=== PATIENT | male | born 1985 | race Caucasian/White ===

== ENCOUNTER → 2025-03-10 14:37 | Outpatient (CLI) | payer OTHER, SELFPAY ==
--- NOTE | 2025-03-10 14:39 | DI.RAD.S_ITS ---
PROCEDURE: XR KNEE LT 1TO2V INDICATIONS: bilateral knee pain TECHNIQUE: 2 views of the knee were acquired. COMPARISON: [facility], CR, XR KNEE RT 1TO2V, 03/10/2025, 14:37. FINDINGS: Bones: No fractures or dislocations. No suspicious bony lesions. Soft tissues: Mild joint effusion. No suspicious soft tissue calcifications. IMPRESSION: No visualized acute fracture or dislocation. However, if clinical concern and/or pain persist, short interval imaging followup in 7-10 days is recommended, as occult injury cannot be definitively excluded. Dictated by: Radha Ramos M.D. on 03/10/2025 at 21:32 Approved by: Radha Ramos M.D. on 03/10/2025 at 21:32
--- NOTE | 2025-03-10 14:39 | DI.RAD.S_ITS ---
PROCEDURE: XR KNEE RT 1TO2V INDICATIONS: bilateral knee pain TECHNIQUE: 2 views of the knee were acquired. COMPARISON: [facility], CR, XR KNEE LT 1TO2V, 03/10/2025, 14:37. FINDINGS: Bones: No fractures or dislocations. No suspicious bony lesions. Soft tissues: Mild joint effusion. No suspicious soft tissue calcifications. IMPRESSION: No visualized acute fracture or dislocation. However, if clinical concern and/or pain persist, short interval imaging followup in 7-10 days is recommended, as occult injury cannot be definitively excluded. Dictated by: Radha Ramos M.D. on 03/10/2025 at 21:33 Approved by: Radha Ramos M.D. on 03/10/2025 at 21:33
[2025-03-10 15:57] LABS: Alanine Aminotransferase 37 IU/L (<50); Albumin 4.8 g/dL (3.5-5.0); Albumin Globulin Ratio 1.8 (1.0-2.8); Alkaline Phosphatase 190 U/L (38-126); Aspartate Aminotransferase 31 IU/L (17-59); BUN Creatinine Ratio 16.7 (6-22); Bilirubin Total 1.2 mg/dL (0.2-1.3); Blood Urea Nitrogen 12 mg/dL (9-20); Calcium 9.7 mg/dL (8.4-10.2); Carbon Dioxide 22 mmol/L (22-32); Chloride 103 mmol/L (98-107); Cholesterol 122 mg/dL (140-199); Estimated Glomerular Filt Rate > 60 mL/min (>60); Globulin 2.7 g/dL (1.7-4.1); Glucose 105 mg/dL (70-99); HDL Cholesterol 45 mg/dL (40-60); HEMOLYSIS < 15 (0-50); LDL Cholesterol Calculated 62 mg/dL (<100); Potassium 4.3 mmol/L (3.4-5.1); Sodium 138 mmol/L (137-145); Total Protein 7.5 g/dL (6.3-8.2); Triglycerides 74 mg/dL (35-150)
[2025-03-10 16:28] LABS: Mean Corpuscular Hemoglobin 28.5 PG (26-34); Red Cell Distribution Width 12.9 % (11.6-14.8)
[2025-03-10 17:23] LABS: Add Manual Diff / Slide Review YES; Hematocrit 55.8 % (41-53); Hemoglobin 19.3 g/dL (13.5-17.5); Mean Corpuscular HGB Conc 34.6 % (30-36); Mean Corpuscular Volume 82.2 fL (80-100); Platelet Count 174 X10^3/uL (150-400); Red Blood Cell Count 6.78 X10^6/uL (4.5-5.9); White Blood Cell Count 5.5 X10^3/uL (4.5-11.0)
[2025-03-10 17:54] LABS: Neutrophils Absolute Manual 3080 /uL (3000-5900); Nucleated Red Blood Cells 1 #/Diff; RBC Morphology Normal Morphology; Total Cells Counted 100
== END ==
PROVIDERS: PCP Student in an Organized Health Care Education/Training Program; Referring Provider Student in an Organized Health Care Education/Training Program; Visit Provider Student in an Organized Health Care Education/Training Program
DX: M25.561 Pain in right knee (principal); M25.562 Pain in left knee; F41.9 Anxiety disorder, unspecified; M25.461 Effusion, right knee; M25.462 Effusion, left knee; Z13.220 Encounter for screening for lipoid disorders
CPT/HCPCS: 36415; 73560; 80053; 80061; 85007; 85025

== ENCOUNTER → 2025-03-25 13:57 | Outpatient (CLI) | payer OTHER, SELFPAY ==
[2025-03-25 14:28] LABS: Add Manual Diff / Slide Review NO; Basophils Absolute Auto 0 /uL (0-100); Basophils Percent Auto 0.5 % (0-2); Eosinophils Absolute Auto 0 /uL (0-450); Eosinophils Percent Auto 0.5 % (2-4); Hematocrit 48.5 % (41-53); Hemoglobin 17.1 g/dL (13.5-17.5); Lymphocytes Absolute Auto 2000 /uL (1100-4500); Lymphocytes Percent Auto 32.5 % (25-40); Mean Corpuscular HGB Conc 35.2 % (30-36); Mean Corpuscular Hemoglobin 28.7 PG (26-34); Mean Corpuscular Volume 81.5 fL (80-100); Monocytes Absolute Auto 700 /uL (0-900); Monocytes Percent Auto 11.9 % (3-14); Neutrophils Absolute Auto 3300 /uL (1500-7000); Neutrophils Percent Auto 54.6 % (50-75); Platelet Count 242 X10^3/uL (150-400); Red Blood Cell Count 5.95 X10^6/uL (4.5-5.9); Red Cell Distribution Width 12.3 % (11.6-14.8); White Blood Cell Count 6.1 X10^3/uL (4.5-11.0)
[2025-03-25 14:48] LABS: Alanine Aminotransferase 39 IU/L (<50); Albumin Globulin Ratio 1.7 (1.0-2.8); Alkaline Phosphatase 182 U/L (38-126); Aspartate Aminotransferase 32 IU/L (17-59); BUN Creatinine Ratio 17.9 (6-22); Bilirubin Total 1.4 mg/dL (0.2-1.3); Blood Urea Nitrogen 14 mg/dL (9-20); Calcium 9.9 mg/dL (8.4-10.2); Carbon Dioxide 25 mmol/L (22-32); Chloride 101 mmol/L (98-107); Estimated Glomerular Filt Rate > 60 mL/min (>60); Globulin 2.9 g/dL (1.7-4.1); Glucose 89 mg/dL (70-99); HEMOLYSIS 20 (0-50); Potassium 4.3 mmol/L (3.4-5.1); Sodium 138 mmol/L (137-145); Total Protein 7.9 g/dL (6.3-8.2)
== END ==
PROVIDERS: PCP Student in an Organized Health Care Education/Training Program; Referring Provider Student in an Organized Health Care Education/Training Program; Visit Provider Student in an Organized Health Care Education/Training Program
DX: R71.8 Other abnormality of red blood cells (principal); R74.8 Abnormal levels of other serum enzymes
CPT/HCPCS: 36415; 80053; 85025

== ENCOUNTER 2025-07-16 14:30 | Outpatient (RCR) | payer OTHER, SELFPAY ==
--- NOTE | 2025-04-30 16:29 | PT.OIE ---
Current Diagnoses Pain in unspecified knee (04/30/25) Past Medical History (Last Reviewed 04/19/25 @ 16:44 by Roberth Ackerman DO) Anxiety Chicken pox (~1990) Knee pain (~2003) Tinnitus Past Surgical History (Last Reviewed 04/19/25 @ 16:44 by Roberth Ackerman DO) Anesthesia Edwards teeth removed (~2014) Visit Care Team Role Provider Type Julissa Palomo MD Attending Provider Physician Family Provider Primary Care Provider Referring Provider Specialty: Family Practice Obstetrics Address: [address] [place] [address] Email: [email or web address] Physical Therapy Initial Evaluation PT-OP-A Visit Information Start: 04/30/25 14:41 Freq: Status: Active Protocol: Document 04/30/25 14:42 BL (Rec: 04/30/25 16:29 BL Laptop) Out-Patient Physical Therapy Visit Information Visit Information Visit Type Initial Evaluation Visit Start Time 14:40 Visit Stop Time 15:25 Visit Number (1) 11/20 (PN by 04/30/25) PT-OP-C Subjective Start: 04/30/25 14:41 Freq: Status: Active Protocol: Document 04/30/25 14:42 BL (Rec: 04/30/25 16:29 BL Laptop) OP-PT Subjective Patient Comments Patient Comments Pt presents to the clinic this date with concerns for bilateral knee pain. pt reports insidious onset when he was a teen, reports his symptoms have gradually worsened over the years with increased clicking and popping noted in his 20s and into his 30s. Pt states he has not been able to correlate any changes in temperature or times of the day when his symptoms are worse. Pt does report stairs or squatting type activities seem to cause an increase in his symptoms. States the pain is more of an annoyance at this time but he does try to avoid doing activities that bother him. Patient Reported Same Progress Patient Questionnaires Lower Extremity Functional Scale LEFS Score 56% function PT-OP-G Mobility & Gait Start: 04/30/25 14:41 Freq: Status: Active Protocol: Document 04/30/25 14:42 BL (Rec: 04/30/25 16:29 BL Laptop) OP Gait Assessment Comments Gait Comments Pt ambulates with B ER with R>L. Pt demo normal amount of hip rotation. PT-OP-H Neuro Start: 04/30/25 14:41 Freq: Status: Active Protocol: Document 04/30/25 14:42 BL (Rec: 04/30/25 16:29 BL Laptop) Sensation Evaluation Comments Summary Comments no changes in sensation noted this date. Coordination Evaluation Comments Coordination no coordination deficits noted this date. Comments PT-OP-J Posture/Palpation/Skin Start: 04/30/25 14:41 Freq: Status: Active Protocol: Document 04/30/25 14:42 BL (Rec: 04/30/25 16:29 BL Laptop) Posture Evaluation Comments Posture Comments Pt sits with posterior pelvic tilt and R sided lean, forward head and rounded shoulders, slumped position. Pt demos increased tibial torsion to R LE. Palpation Assessment Location R knee Palpation Details crepitus noted with loaded bilateral flexion through patella. Increased crepitus noted with patellar grind test. PT-OP-K Range of Motion Start: 04/30/25 14:41 Freq: Status: Active Protocol: Document 04/30/25 14:42 BL (Rec: 04/30/25 16:29 BL Laptop) Hip Goniometric Range of Motion Hip ROM Limitations Comments Rekha ROM WFL, Increased anterior tension noted into flexion on L side Knee Goniometric Range of Motion Knee Right Knee ROM WFL Yes Comments hypermobility noted Left Knee ROM WFL Yes Comments hypermobility noted PT-OP-L Special Tests Start: 04/30/25 14:41 Freq: Status: Active Protocol: Document 04/30/25 14:42 BL (Rec: 04/30/25 16:29 BL Laptop) Special Tests Knee Special Tests Jamaal Test Test Results negative Straight Leg Raise Test Results negative Patellar Grind Test Test Results negative Varus- 0 Degrees Test Results negative Valgus- 0 Degrees Test Results negative Posterior Draw Test Results negative Anterior Draw Test Results negative PT-OP-M Strength Start: 04/30/25 14:41 Freq: Status: Active Protocol: Document 04/30/25 14:42 BL (Rec: 04/30/25 16:29 BL Laptop) Hip Strength Hip Manual Muscle Testing Right Flexion (L2) 4+ Good+ Extension (S1) 4+ Good+ Abduction 5 Normal Adduction 4+ Good+ Left Flexion (L2) 4+ Good+ Extension (S1) 4+ Good+ Abduction 5 Normal Adduction 4+ Good+ Knee Strength Knee Manual Muscle Testing Right Flexion (S2) 4 Good Extension (L3) 5 Normal Left Flexion (S2) 4 Good Extension (L3) 5 Normal PT-OP-Q Treatments Start: 04/30/25 14:41 Freq: Status: Active Protocol: Document 04/30/25 14:42 BL (Rec: 04/30/25 16:29 BL Laptop) Therapeutic Exercises Supine Exercises strength Supine Exercise Name bridges, with heel digs Resistance lvl 3 band Comments focus on hamstring activation Prone Exercises strength Prone Exercise Name hamsting curls with knee lift Resistance lvl 3 band Comments focus on hip abduction and hamstring activation PT-OP-T Assessment and Plan Start: 04/30/25 14:41 Freq: Status: Active Protocol: Document 04/30/25 14:42 BL (Rec: 04/30/25 16:29 BL Laptop) Physical Therapy Assessment Rehab Potential Rehabilitation Good Potential Evaluation Complexity Number of Personal 1-2 Factors/ Comorbidities Number of Body 3 Systems Impaired Clinical Stable Presentation at Evaluation Impairments Impairments Functional Activities,Functional Mobility,Integument, Pain,Posture,ROM,Strength,Transfers Goals Three Usp Goal (LTG) Pt will demo improved knee flexion strength in sitting to 4+/5 by DC for improved knee stability with ADLS. Two Shipping Inspector Goal (LTG) Pt will report being able to squat down without increase in symptoms 15x by DC for improved functional mobility. One Short Term Goal (STG pt will be ind with HEP within 2 visits in order to ) progress toward intermediate accountant therapy goals outside of therapy visits. Usp Goal (LTG) Pt will demo improved LEFS score to 70% function or better by DC for improved completion of ADLs. Assessment Summary Assessment Pt presents to the clinic this date with concerns for rekha knee pain that has been present for many years. The pain has limited his ability to complete ADLs and has altered his decision making with ADLS. Pt demos severe crepitus with closed chain bending activities. Pt demos full AROM at both knees and hip and good hip strength, pt demos increased mobility in all joints with slight increase in joint laxity. Pt demos hypermobility at bilateral patella's. Pt also demos decreased knee flexion strength. Pt will benefit from skilled Physical Therapy intervention for strength and stability control to posterior chain to improve functional mobility and decrease symptoms for improved quality of life. Physical Therapy Plan Frequency and Duration Frequency of 1x/Week Treatment Duration of 12 treatment (weeks) Plan of Care Start 04/30/25 Date Plan of Care End 07/23/25 Date Therapeutic Interventions Therapeutic Coordination Training,Gait Training,Home Exercise Interventions Program,Joint Mobilizations,Manual Therapy, Neuromuscular Re-education,Patient/Caregiver Education, Self-Care/Home Management,Sensory Integration,Soft Tissue Mobilization,Taping,Therapeutic Activities, Therapeutic Exercises Modalities Cold Pack/Ice Massage,Electric Stimulation,Hot Packs, Infrared Therapy,Iontophoresis,Traction- Mechanical, Ultrasound
--- NOTE | 2025-04-30 16:30 | PT.OPPOC ---
Physical, Occupational & Speech Therapy At [facility] Current Diagnoses Pain in unspecified knee (04/30/25) Visit Care Team Role Provider Type Julissa Palomo MD Attending Provider Physician Family Provider Primary Care Provider Referring Provider Specialty: Family Practice Obstetrics Address: [address] [place] [address], [id number] Email: [email or web address] Plan Of Care PT-OP-T Assessment and Plan Start: 04/30/25 14:41 Freq: Status: Active Protocol: Document 04/30/25 14:42 BL (Rec: 04/30/25 16:29 BL Laptop) Physical Therapy Assessment Rehab Potential Rehabilitation Good Potential Evaluation Complexity Number of Personal 1-2 Factors/ Comorbidities Number of Body 3 Systems Impaired Clinical Stable Presentation at Evaluation Impairments Impairments Functional Activities,Functional Mobility,Integument, Pain,Posture,ROM,Strength,Transfers Goals Three Penitentiary Goal (LTG) Pt will demo improved knee flexion strength in sitting to 4+/5 by DC for improved knee stability with ADLS. Two Penitentiary Goal (LTG) Pt will report being able to squat down without increase in symptoms 15x by DC for improved functional mobility. One Short Term Goal (STG pt will be ind with HEP within 2 visits in order to ) progress toward group home therapy goals outside of therapy visits. Medical Stenographer Goal (LTG) Pt will demo improved LEFS score to 70% function or better by DC for improved completion of ADLs. Assessment Summary Assessment Pt presents to the clinic this date with concerns for rekha knee pain that has been present for many years. The pain has limited his ability to complete ADLs and has altered his decision making with ADLS. Pt demos severe crepitus with closed chain bending activities. Pt demos full AROM at both knees and hip and good hip strength, pt demos increased mobility in all joints with slight increase in joint laxity. Pt demos hypermobility at bilateral patella's. Pt also demos decreased knee flexion strength. Pt will benefit from skilled Physical Therapy intervention for strength and stability control to posterior chain to improve functional mobility and decrease symptoms for improved quality of life. Physical Therapy Plan Frequency and Duration Frequency of 1x/Week Treatment Duration of 12 treatment (weeks) Plan of Care Start 04/30/25 Plan of Care End 07/23/25 Date Therapeutic Interventions Therapeutic Coordination Training,Gait Training,Home Exercise Interventions Program,Joint Mobilizations,Manual Therapy, Neuromuscular Re-education,Patient/Caregiver Education, Self-Care/Home Management,Sensory Integration,Soft Tissue Mobilization,Taping,Therapeutic Activities, Therapeutic Exercises Modalities Cold Pack/Ice Massage,Electric Stimulation,Hot Packs, Infrared Therapy,Iontophoresis,Traction- Mechanical, Ultrasound Plan of Care Dates Plan of Care Start Date 04/30/25 Plan of Care End Date 07/23/25 Electronically Signed by: Ramos Landaverde, PT 04/30/25 1891 If you are in agreement with this Plan of Care, please return a signed and dated copy. I have reviewed this Plan of Care and certify that the skilled therapy services above are required to meet the patient?s needs. Physician Signature Date Printed Name and Credentials Clinical Instructor Signature Printed Name and Credentials
--- NOTE | 2025-05-21 15:15 | PT.OTN ---
Current Diagnoses Pain in unspecified knee (05/21/25) Physical Therapy Treatment Note PT-OP-A Visit Information Start: 04/30/25 14:41 Freq: Status: Active Protocol: Document 05/21/25 14:31 BL (Rec: 05/21/25 15:15 BL Laptop) Out-Patient Physical Therapy Visit Information Visit Information Visit Type Treatment Note Visit Start Time 14:30 Visit Stop Time 15:25 Visit Number (2) 2/10 (PN by 04/30/25) PT-OP-C Subjective Start: 04/30/25 14:41 Freq: Status: Active Protocol: Document 05/21/25 14:31 BL (Rec: 05/21/25 15:15 BL Laptop) OP-PT Subjective Patient Comments Patient Comments Pt presents to the clinic this date and reports he is doing well, can feel his strength is improving however symptoms have remained about the same. PT-OP-G Mobility & Gait Start: 04/30/25 14:41 Freq: Status: Active Protocol: Document 04/30/25 14:42 BL (Rec: 04/30/25 16:29 BL Laptop) OP Gait Assessment Comments Gait Comments Pt ambulates with B ER with R>L. Pt demo normal amount of hip rotation. PT-OP-H Neuro Start: 04/30/25 14:41 Freq: Status: Active Protocol: Document 04/30/25 14:42 BL (Rec: 04/30/25 16:29 BL Laptop) Sensation Evaluation Comments Summary Comments no changes in sensation noted this date. Coordination Evaluation Comments Coordination no coordination deficits noted this date. Comments PT-OP-J Posture/Palpation/Skin Start: 04/30/25 14:41 Freq: Status: Active Protocol: Document 04/30/25 14:42 BL (Rec: 04/30/25 16:29 BL Laptop) Posture Evaluation Comments Posture Comments Pt sits with posterior pelvic tilt and R sided lean, forward head and rounded shoulders, slumped position. Pt demos increased tibial torsion to R LE. Palpation Assessment Location R knee Palpation Details crepitus noted with loaded bilateral flexion through patella. Increased crepitus noted with patellar grind test. PT-OP-K Range of Motion Start: 04/30/25 14:41 Freq: Status: Active Protocol: Document 04/30/25 14:42 BL (Rec: 04/30/25 16:29 BL Laptop) Hip Goniometric Range of Motion Hip ROM Limitations Comments Domingo ROM WFL, Increased anterior tension noted into flexion on L side Knee Goniometric Range of Motion Knee Right Knee ROM WFL Yes Comments hypermobility noted Left Knee ROM WFL Yes Comments hypermobility noted PT-OP-L Special Tests Start: 04/30/25 14:41 Freq: Status: Active Protocol: Document 04/30/25 14:42 BL (Rec: 04/30/25 16:29 BL Laptop) Special Tests Knee Special Tests Jamaal Test Test Results negative Straight Leg Raise Test Results negative Patellar Grind Test Test Results negative Varus- 0 Degrees Test Results negative Valgus- 0 Degrees Test Results negative Posterior Draw Test Results negative Anterior Draw Test Results negative PT-OP-M Strength Start: 04/30/25 14:41 Freq: Status: Active Protocol: Document 04/30/25 14:42 BL (Rec: 04/30/25 16:29 BL Laptop) Hip Strength Hip Manual Muscle Testing Right Flexion (L2) 4+ Good+ Extension (S1) 4+ Good+ Abduction 5 Normal Adduction 4+ Good+ Left Flexion (L2) 4+ Good+ Extension (S1) 4+ Good+ Abduction 5 Normal Adduction 4+ Good+ Knee Strength Knee Manual Muscle Testing Right Flexion (S2) 4 Good Extension (L3) 5 Normal Left Flexion (S2) 4 Good Extension (L3) 5 Normal PT-OP-Q Treatments Start: 04/30/25 14:41 Freq: Status: Active Protocol: Document 05/21/25 14:31 BL (Rec: 05/21/25 15:15 BL Laptop) Therapeutic Exercises Supine Exercises strength Supine Exercise Name bridges, with heel digs Resistance lvl 5 band Comments focus on hamstring activation Prone Exercises strength Prone Exercise Name hamsting curls with knee lift Resistance lvl 3 band Comments focus on hip abduction and hamstring activation Standing Exercises strength Standing Exercise lateral walking, lateral step ups Name Comments focus on knee alignment, pt demos difficulty maintaining neutral alignement PT-OP-T Assessment and Plan Start: 04/30/25 14:41 Freq: Status: Active Protocol: Document 05/21/25 14:31 BL (Rec: 05/21/25 15:15 BL Laptop) Physical Therapy Assessment Goals Three Senior Living Goal (LTG) Pt will demo improved knee flexion strength in sitting to 4+/5 by DC for improved knee stability with ADLS. Two Senior Living Goal (LTG) Pt will report being able to squat down without increase in symptoms 15x by DC for improved functional mobility. One Short Term Goal (STG pt will be ind with HEP within 2 visits in order to ) progress toward detention therapy goals outside of therapy visits. Catering And Events Manager Goal (LTG) Pt will demo improved LEFS score to 70% function or better by DC for improved completion of ADLs. Assessment Summary Assessment Pt tolerates session well, advanced HEP for LE strength and knee stability. Pt demos difficulty maintaining neutral knee alignment, demos compensation at the hips. Continue to advance hip and knee strengthening next session. Physical Therapy Plan Frequency and Duration Frequency of 1x/Week Treatment Duration of 12 treatment (weeks) Plan of Care Start 04/30/25 Plan of Care End 07/23/25 Date
--- NOTE | 2025-06-04 15:20 | PT.OPPN ---
Current Diagnoses Pain in unspecified knee (06/04/25) Physical Therapy Progress Note PT-OP-A Visit Information Start: 04/30/25 14:41 Freq: Status: Active Protocol: Document 06/04/25 14:37 BL (Rec: 06/04/25 15:18 BL Laptop) Out-Patient Physical Therapy Visit Information Visit Information Visit Type Progress Note Visit Start Time 14:30 Visit Stop Time 15:10 Visit Number (3) 11/20 (PN by 04/30/25) PT-OP-C Subjective Start: 04/30/25 14:41 Freq: Status: Active Protocol: Document 06/04/25 14:37 BL (Rec: 06/04/25 15:18 BL Laptop) OP-PT Subjective Patient Comments Patient Comments Pt presents to the clinic this date and reports he is doing well, states symptoms feel about the same however continues to notice improved quad control. States he is still fatigued following HEP. PT-OP-G Mobility & Gait Start: 04/30/25 14:41 Freq: Status: Active Protocol: Document 04/30/25 14:42 BL (Rec: 04/30/25 16:29 BL Laptop) OP Gait Assessment Comments Gait Comments Pt ambulates with B ER with R>L. Pt demo normal amount of hip rotation. PT-OP-H Neuro Start: 04/30/25 14:41 Freq: Status: Active Protocol: Document 04/30/25 14:42 BL (Rec: 04/30/25 16:29 BL Laptop) Sensation Evaluation Comments Summary Comments no changes in sensation noted this date. Coordination Evaluation Comments Coordination no coordination deficits noted this date. Comments PT-OP-J Posture/Palpation/Skin Start: 04/30/25 14:41 Freq: Status: Active Protocol: Document 04/30/25 14:42 BL (Rec: 04/30/25 16:29 BL Laptop) Posture Evaluation Comments Posture Comments Pt sits with posterior pelvic tilt and R sided lean, forward head and rounded shoulders, slumped position. Pt demos increased tibial torsion to R LE. Palpation Assessment Location R knee Palpation Details crepitus noted with loaded bilateral flexion through patella. Increased crepitus noted with patellar grind test. PT-OP-K Range of Motion Start: 04/30/25 14:41 Freq: Status: Active Protocol: Document 04/30/25 14:42 BL (Rec: 04/30/25 16:29 BL Laptop) Hip Goniometric Range of Motion Hip ROM Limitations Comments Domingo ROM WFL, Increased anterior tension noted into flexion on L side Knee Goniometric Range of Motion Knee Measured in Degrees Right Knee ROM WFL Yes Comments hypermobility noted Left Knee ROM WFL Yes Comments hypermobility noted PT-OP-L Special Tests Start: 04/30/25 14:41 Freq: Status: Active Protocol: Document 04/30/25 14:42 BL (Rec: 04/30/25 16:29 BL Laptop) Special Tests Knee Special Tests Jamaal Test Test Results negative Straight Leg Raise Test Results negative Patellar Grind Test Test Results negative Varus- 0 Degrees Test Results negative Valgus- 0 Degrees Test Results negative Posterior Draw Test Results negative Anterior Draw Test Results negative PT-OP-M Strength Start: 04/30/25 14:41 Freq: Status: Active Protocol: Document 04/30/25 14:42 BL (Rec: 04/30/25 16:29 BL Laptop) Hip Strength Hip Manual Muscle Testing Right Flexion (L2) 4+ Good+ Extension (S1) 4+ Good+ Abduction 5 Normal Adduction 4+ Good+ Left Flexion (L2) 4+ Good+ Extension (S1) 4+ Good+ Abduction 5 Normal Adduction 4+ Good+ Knee Strength Knee Manual Muscle Testing Right Flexion (S2) 4 Good Extension (L3) 5 Normal Left Flexion (S2) 4 Good Extension (L3) 5 Normal PT-OP-T Assessment and Plan Start: 04/30/25 14:41 Freq: Status: Active Protocol: Document 06/04/25 14:37 BL (Rec: 06/04/25 15:18 BL Laptop) Physical Therapy Assessment Goals Three Custodial Goal (LTG) Pt will demo improved knee flexion strength in sitting to 4+/5 by DC for improved knee stability with ADLS. ( progressing) 06/04/25: pt demos improved hamstring strength however continues to have mild distal knee pain. Two Budget Technician Goal (LTG) Pt will report being able to squat down without increase in symptoms 15x by DC for improved functional mobility. (progressing) 06/04/25: pt continues to demo distal patella pain after 8-10 squats this date. One Short Term Goal (STG pt will be ind with HEP within 2 visits in order to ) progress toward keno terminal operator therapy goals outside of therapy visits. (Goal Met) Custodial Goal (LTG) Pt will demo improved LEFS score to 70% function or better by DC for improved completion of ADLs. ( progressing): per pt report improving Assessment Summary Assessment Pt tolerates session well, advanced HEP for LE hip knee and ankle strength and stability. Pt continues to demos difficulty maintaining neutral knee alignment, demos compensation at the hips. Continue to advance hip and knee strengthening next session. Pt will continue to benefit from strength and endurance training to improved pain free ROM. Physical Therapy Plan Frequency and Duration Frequency of 1x/Week Treatment Duration of 12 treatment (weeks) Plan of Care Start 04/30/25 Date Plan of Care End 07/23/25 Date
--- NOTE | 2025-06-18 17:33 | PT.OTN ---
Current Diagnoses Pain in unspecified knee (06/18/25) Physical Therapy Treatment Note PT OP: Lower Back/Lower Extremity Start: 06/18/25 07:30 Freq: Status: Active Protocol: Document 06/18/25 16:47 BL (Rec: 06/18/25 17:33 BL Laptop) Out-Patient Physical Therapy Visit Information Visit Information Visit Type Treatment Note Visit Start Time 14:30 Visit Stop Time 15:10 Visit Number (4) 12/21 Progress Note Due 04/30/25 OP-PT Subjective Patient Comments Patient Comments Pt presents to the clinic this date and reports he is doing well, states he has started to notice slight improvement in his symptoms, reports the lateral walking has started to bother his low back. Therapeutic Exercises Supine Exercises strength Supine Exercise Name Banded bridges with SL extension Resistance lvl 4 band Comments focus on hamstring activation Sidelying Exercises strength Sidelying Exercise hip abduction with IR focus Name Resistance lvl 1 band at ankles Comments 10x Standing Exercises BOSU squats Standing Exercise shuttle squats, cone deadlift taps Name strength Standing Exercise lateral walking, lateral step ups Name Resistance lvl 3 band Comments cues for core activation decrease low back symptoms Physical Therapy Assessment Goals Three Electrical And Electronic Assembler Goal (LTG) Pt will demo improved knee flexion strength in sitting to 4+/5 by DC for improved knee stability with ADLS. ( progressing) 06/04/25: pt demos improved hamstring strength however continues to have mild distal knee pain. Two [facility] Goal (LTG) Pt will report being able to squat down without increase in symptoms 15x by DC for improved functional mobility. (progressing) 06/04/25: pt continues to demo distal patella pain after 8-10 squats this date. 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 (Goal Met) [facility] Goal (LTG) Pt will demo improved LEFS score to 70% function or better by DC for improved completion of ADLs. ( progressing): per pt report improving Assessment Summary Assessment Pt tolerates session well, advanced HEP for LE hip knee and ankle strength and stability with increased education for core activation and cues to avoid compensation due to weakness in hips. Pt demos improved neutral knee alignment this date with continued compensation at the hips. Continue to advance hip and knee strengthening next session. Pt will continue to benefit from strength and endurance training to improved pain free ROM. Physical Therapy Plan Frequency and Duration Frequency of 1x/Week Treatment Duration of 12 treatment (weeks) Plan of Care Start 04/30/25 Date Plan of Care End 07/23/25 Date Next Visit Focus/Plan Next Note Type Treatment Note Next Visit Plan advance hip and knee stability with dynamic mobility.
--- NOTE | 2025-07-07 08:10 | PT.OPPN ---
Current Diagnoses Pain in unspecified knee (07/07/25) Physical Therapy Progress Note PT OP: Lower Back/Lower Extremity Start: 06/18/25 07:30 Freq: Status: Active Protocol: Document 07/07/25 07:27 BL (Rec: 07/07/25 08:10 BL Laptop) Out-Patient Physical Therapy Visit Information Visit Information Visit Type Progress Note Visit Start Time 07:30 Visit Stop Time 08:10 Visit Number (5) 11/20 Progress Note Due 08/06/25 OP-PT Subjective Patient Comments Patient Comments Pt presents to the clinic this date and reports he is doing well, states improved symptoms with all mobility, continues to have mild discomfort in R knee after activities. Therapeutic Exercises Supine Exercises strength Supine Exercise Name Banded bridges with SL extension Resistance lvl 4 band Comments focus on hamstring activation Sidelying Exercises strength Sidelying Exercise hip abduction with IR focus, sideplank clamshell Name Resistance lvl 1 band at ankles Comments 10x Standing Exercises BOSU squats Standing Exercise shuttle squats, cone deadlift taps Name strength Standing Exercise lateral walking, lateral step ups Name Resistance lvl 3 band Comments cues for core activation decrease low back symptoms Physical Therapy Assessment Goals Three Configuration Engineer Goal (LTG) Pt will demo improved knee flexion strength in sitting to 4+/5 by DC for improved knee stability with ADLS. ( progressing) 06/04/25: pt demos improved hamstring strength however continues to have mild distal knee pain. 07/07/25: Pt demos 4+/5 strength bilateral Two Configuration Engineer Goal (LTG) Pt will report being able to squat down without increase in symptoms 15x by DC for improved functional mobility. (progressing) 06/04/25: pt continues to demo distal patella pain after 8-10 squats this date. : Pain after 12 on R, L no pain. One Short Term Goal (STG pt will be ind with HEP within 2 visits in order to ) progress toward senior living therapy goals outside of therapy visits. (Goal Met) Configuration Engineer Goal (LTG) Pt will demo improved LEFS score to 70% function or better by DC for improved completion of ADLs. (Goal Met ) 07/07/25: 70 Function Assessment Summary Assessment Pt tolerates session well, pt able to tolerate advancement in HEP for LE strength and stability, pt continues to demo improved stability and decreased discomfort in rekha knees. Pt progressing toward all therapy goals and will continue to benefit from skilled PT intervention for strength and endurance training. Physical Therapy Plan Frequency and Duration Frequency of 1x/Week Treatment Duration of 12 treatment (weeks) Plan of Care Start 04/30/25 Date Plan of Care End 07/23/25 Date Next Visit Focus/Plan Next Note Type Treatment Note Next Visit Plan advance hip and knee stability with dynamic mobility.
--- NOTE | 2025-07-16 15:10 | PT.OPDS ---
Current Diagnoses Pain in unspecified knee (07/16/25) Visit Care Team Role Provider Type Julissa Palomo MD Attending Provider Physician Family Provider Primary Care Provider Referring Provider Specialty: Family Practice Obstetrics Address: [address] [place] [address], [id number] Email: [email or web address] Visit Number Visit Number (6) 12/21 Discharge Summary PT OP: Lower Back/Lower Extremity Start: 06/18/25 07:30 Freq: Status: Active Protocol: Document 07/16/25 14:32 BL (Rec: 07/16/25 14:52 BL Laptop) Out-Patient Physical Therapy Visit Information Visit Information Visit Type Discharge Summary Visit Start Time 14:30 Visit Stop Time 15:00 Visit Number (6) 12/21 Progress Note Due 08/06/25 OP-PT Subjective Patient Comments Patient Comments Pt presents to the clinic this date and reports he is doing well, state overall very happy with his progress and continues to notice improvement in his symptoms as well as strength. Pt feels he is ready for DC this date . Therapeutic Exercises Supine Exercises strength Supine Exercise Name Banded bridges with SL extension Resistance lvl 4 band Comments focus on hamstring activation Sidelying Exercises strength Sidelying Exercise hip abduction with IR focus, sideplank clamshell Name Resistance lvl 1 band at ankles Comments 10x Standing Exercises strength Standing Exercise Double and single leg squat, lunges, 4 way clock Name reaches, deadlift Physical Therapy Assessment Goals Three Ammonia Still Operator Goal (LTG) Pt will demo improved knee flexion strength in sitting to 4+/5 by DC for improved knee stability with ADLS. ( Goal Met) 06/04/25: pt demos improved hamstring strength however continues to have mild distal knee pain. 07/07/25: Pt demos 4+/5 strength bilateral Two Group Home Goal (LTG) Pt will report being able to squat down without increase in symptoms 15x by DC for improved functional mobility. (progressing) 06/04/25: pt continues to demo distal patella pain after 8-10 squats this date. : Pain after 12 on R, L no pain. 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 (Goal Met) Ammonia Still Operator Goal (LTG) Pt will demo improved LEFS score to 70% function or better by DC for improved completion of ADLs. (Goal Met ) 07/07/25: 70 Function Assessment Summary Assessment Pt has made great progress in skilled Physical Therapy intervention. Discussed with pt advancement of HEP for continued hip and knee stability. Pt has met majority of goals this date and will continue to benefit from strength and endurance training in order to improve functional mobility outside of therapy visits. Pt is adequate for DC at this time.
== END 2025-07-19 09:30 | disposition home or self-care (01) ==
LOC: PHYS 14:30
PROVIDERS: Family Provider Student in an Organized Health Care Education/Training Program; PCP Student in an Organized Health Care Education/Training Program; Referring Provider Student in an Organized Health Care Education/Training Program; Visit Provider Student in an Organized Health Care Education/Training Program
DX: M25.569 Pain in unspecified knee (principal)
CPT/HCPCS: 97110; 97162

== ENCOUNTER → 2025-07-28 13:33 | Outpatient (CLI) | payer OTHER, SELFPAY ==
[2025-07-28 14:08] LABS: Semen Sperm Prescence Post-Vas Absent (ABSENT)
== END ==
PROVIDERS: Family Provider Student in an Organized Health Care Education/Training Program; PCP Student in an Organized Health Care Education/Training Program; Referring Provider Student in an Organized Health Care Education/Training Program; Visit Provider Urology
DX: Z30.2 Encounter for sterilization (principal)
CPT/HCPCS: 89321